=== PATIENT | male | born 1950 | race Caucasian/White ===

== ENCOUNTER → 2017-06-26 | Outpatient (CLI) | payer OTHER ==
[~2017-06-26] MED LIST: ADULT LOW DOSE81 MG PO; ALENDRONATE SOD70 MG PO; ALLOPURINOL 10100 M1; ALLOPURINOL 10100 M1 PO; AMILORIDE HCL-1 EACH PO; ASPIR 8181 MG PO; BENEFIBER1 EAC1 PO; CALCIUM CITRAT1 EAC1 PO; CIPRO500 MG PO; CITRATE OF MAG296 ML PO; CLARITIN10 MG PO; COENZYME Q-1030 MG PO; COZAAR 25 MG TA25 M1 PO; CRESTOR5 MG PO; Cranberry PO; FAMCYCLOVIR 50500 M1 PO; FISH OIL 1,001000 M1 PO; FISH OIL PO; FLOMAX0.4 MG PO; FLONASE 0.05%50 MCG INH; FOSAMAX 70 MG T70 MG PO; GAS RELIEF80 MG PO; GLUCOSAMINE CH1 EAC1 PO; HYDROCHLOROTHIA25 M1 PO; HYDROCODONE-AP1 EAC6 PO; KLOR-CON 1010 MEQ PO; LOPRESSOR50 PO; MIDAMOR 5MG TABL5 M1 PO; MIRALAX17 GM PO; MULTIVITAMINS PO; NEURONTIN 300M300 M2 PO; NORCO 5-325 TA1 EACH PO; PLAVIX 75 MG TA75 M1 PO; PRILOSEC 20 MG20 MG PO; PROBIOTIC1 EAC1 PO; SENNA S TABLET1 EACH PO; SIMVASTATIN20 MG PO; SIMVASTATIN40 MG PO; SIMVASTATIN5 MG PO; TRAMADOL 50 MG50 MG PO; ZADITOR5 M1 FLUSH
== END ==
LOC: M.ULTRA 09:44
DX: N28.1 Cyst of kidney, acquired (principal); N20.0 Calculus of kidney; N28.89 Other specified disorders of kidney and ureter

== ENCOUNTER → 2018-06-04 | Outpatient (CLI) | payer OTHER | LOC: M.RAD 14:16 | DX: J84.10 Pulmonary fibrosis, unspecified (principal); J20.9 Acute bronchitis, unspecified ==

== ENCOUNTER 2018-08-11 09:37 | Inpatient (IN) | payer OTHER ==
[2018-08-11] VITALS (17 sets, daily range): BP systolic 126–182; BP diastolic 65–81
[~2018-08-11] VITALS: Ht 175.3 cm; Wt 83.3 kg
[~2018-08-11 09:37] MED LIST changes: +FISH OIL 1,0001 EAC1 PO; -FISH OIL 1,001000 M1 PO; -ZADITOR5 M1 FLUSH; +ZADITOR5 M1 OPHTHALMIC
[2018-08-11 10:17] LABS: ABSOLUTE EOSINOPHILS 0.1 thou/uL (0.0-0.7); ABSOLUTE LYMPHOCYTES 1.3 thou/uL (0.8-5.3); ABSOLUTE MONOCYTES 0.4 thou/uL (0.0-1.2); BASOPHILS 0.7 %; EOSINOPHILS 1.6 %; HEMATOCRIT 38.2 % (42.0-52.0); HEMOGLOBIN 12.9 gm/dL (14.0-18.0); LYMPHOCYTES 26.3 %; MCH 29.7 pg (26.0-34.0); MCHC 33.7 g/dL (28.0-37.0); MCV 88.1 fL (80.0-100.0); MONOCYTES 9.1 %; MPV 9.3 fl. (7.2-11.1); NUCLEATED RBCS 0 /100WBC; PLATELET COUNT* 122 thou/uL (150-400); POLYS 62.3 %; RBC 4.33 mil/uL (4.50-6.00); RDW-CV 13.3 % (10.5-14.5); WBC 4.9 thou/uL (4.0-11.0)
[2018-08-11 10:29] LABS: CALCIUM 9.5 mg/dL (8.5-10.1); CREATININE 0.9 mg/dL (0.6-1.3); POTASSIUM 3.6 mmol/L (3.5-5.1)
[2018-08-11 10:32] LABS: PROTIME 10.5 Seconds (9.20-11.50)
[2018-08-11 10:49] LABS: ALBUMIN 3.2 g/dL (3.4-5.0); CK-MB MASS 16.6 ng/mL (<0.5-3.6); TOTAL BILIRUBIN 0.6 mg/dL (<0.1-1.0); TOTAL PROTEIN 7.2 g/dL (6.4-8.2)
[2018-08-11 10:51] LABS: TROPONIN-I LEVEL 10.6 ng/mL (<0.06)
--- NOTE | 2018-08-11 13:23 | NUR ---
APPLICATION DEVELOPMENT CONSULTANT FOR PT
--- NOTE | 2018-08-11 16:08 | EKG ---
[place] [address] ELECTROCARDIOGRAM REPORT Name: NATHALIE FREITAS Room: [place] [address] ADM IN [facility].#: [id number] Admission: 08/11/18 Attend Phys: Fuentes Smith MD Discharge: Date of : 46 Report #: [id number] THIS REPORT FOR: //name// [facility] Test Date: 2018-08-11 Test Time: 09:47:33 Pat Name: NATHALIE FREITAS Department: Room: [facility] Gender: M Sales Administration Manager: : 1950 Requested By: Adonay Escobar Order Number: [id number] MD: Ramiro Velasquez Measurements Intervals [place] Rate: 71 P: 39 AL: 170 QRS: -17 QRSD: 102 T: 31 QT: 396 QTc: 431 Interpretive Statements Sinus rhythm Probable left atrial enlargement Borderline left axis deviation Baseline wander in lead(s) V6 Compared to ECG 05/07/2017 09:40:52 Sinus tachycardia no longer present Atrial premature complex(es) no longer present Electronically Signed On 08-11-2018 16:08:18 COORDINATE MEASURING MACHINE PROGRAMMER by Ramiro Velasquez [email or web address] <ELECTRONICALLY SIGNED> By: Ramior Velasquez MD, [facility] 08/11/18 1608 0947 0947 Ramiro Velasquez MD, [facility] /EPI
--- NOTE | 2018-08-11 18:52 | NUR ---
RECEIVED REPORT FROM FREDDY HIGUERA AROUND 1630, ASSUMED PT CARE. PT A&OX4, VSS. RIGHT GROIN CATH SITE CDI, NO HEMATOMA. STUDIO ASSISTANT IN PLACE TRACING SR. ADMISSION HISTORY, ASSESSMENT, AND EDUCATION COMPLETED BY FREDDY HIGUERA - THIS RN AGREES WITH CHARTING AND ASSESSMENT OF FREDDY HIGUERA. PT TOLERATING INSTURUCTED IMMOBILIZATION - ABLE TO BE UP AT 10PM. PT DENIES PAIN OR DISCOMFORT. PT TOLERATING DIET. PT SELF STRAIGHT CATHETERIZED HIMSELF WITH NO ISSUES. PT CURRENTLY RESTING IN BED WATCHING TV. ALL NEEDS MET AT THIS TIME. HOURLY ROUNDING PERFORMED. CALL LIGHT IS WITHIN REACH. FALL PRECAUTIONS IN PLACE.
--- NOTE | 2018-08-11 21:04 | NUR ---
CALL TO UZMA LOVELL REGARDING PATIENT'S CATHETERS, SEE ORDERS.
[2018-08-12] VITALS: BP 139/65
[2018-08-12 04:00] VITALS: BP 146/74
--- NOTE | 2018-08-12 04:56 | NUR ---
PATIENT RESTED IN BED, NO ACUTE CHANGES. PATIENT DID NOT SHOW SIGNS OF DISTRESS. CALL LIGHT WITHIN REACH, HOURLY ROUNDING OBSERVED, BED ALARM ON. PATIENT DID NOT COMPLAIN OF CHEST PAIN.
[2018-08-12 05:28] LABS: ABSOLUTE EOSINOPHILS 0.1 thou/uL (0.0-0.7); ABSOLUTE LYMPHOCYTES 1.3 thou/uL (0.8-5.3); ABSOLUTE MONOCYTES 0.5 thou/uL (0.0-1.2); ABSOLUTE NEUTROPHILS 3.8 thou/uL (1.6-8.1); BASOPHILS 0.4 %; EOSINOPHILS 1.7 %; HEMATOCRIT 36.2 % (42.0-52.0); HEMOGLOBIN 12.4 gm/dL (14.0-18.0); MCH 30.1 pg (26.0-34.0); MCHC 34.4 g/dL (28.0-37.0); MCV 87.5 fL (80.0-100.0); MONOCYTES 9.3 %; MPV 9.4 fl. (7.2-11.1); NUCLEATED RBCS 0 /100WBC; PLATELET COUNT* 111 thou/uL (150-400); POLYS 66.6 %; RBC 4.13 mil/uL (4.50-6.00); RDW-CV 13.7 % (10.5-14.5); WBC 5.7 thou/uL (4.0-11.0)
[2018-08-12 05:50] LABS: ALKALINE PHOSPHATASE 61 U/L (46-116); ANION GAP 6 mmol/L (7-16); BUN 12 mg/dL (7-18); CALCIUM 9.3 mg/dL (8.5-10.1); CHLORIDE 105 mmol/L (98-107); CO2 28 mmol/L (21-32); CREATININE 0.9 mg/dL (0.6-1.3); GLUCOSE 98 mg/dL (70-99); POTASSIUM 3.2 mmol/L (3.5-5.1); SGOT 38 U/L (15-37); SGPT 20 U/L (30-65); SODIUM 139 mmol/L (136-145); TOTAL BILIRUBIN 0.7 mg/dL (<0.1-1.0); TOTAL PROTEIN 6.7 g/dL (6.4-8.2)
[2018-08-12 05:53] LABS: SERUM ASSESSMENT CLEAR; TROPONIN-I LEVEL 3.92 ng/mL (<0.06)
[2018-08-12 06:05] LABS: CHOLESTEROL 151 mg/dL (<200); HDL CHOLESTEROL 56 mg/dL (>40); LDL CHOLESTEROL 77 mg/dL (<100); TC:HDL 2.7 Ratio (Not establshd); TRIGLYCERIDE 92 mg/dL (<150); VLDL 18 mg/dL (<40)
[2018-08-12 07:30] VITALS: BP 135/84
[2018-08-12 09:44] VITALS: BP 135/84
[2018-08-12] MEDS ORDERED: EFFIENT10 MG PO (11:12)
[2018-08-12] MEDS ORDERED: NITROGLYCERIN0.4 MG SUBLING (11:13)
--- NOTE | 2018-08-12 12:18 | NUR ---
RECEIVED DISCHARGE ORDERS PER DR MAE AND DR FITZPATRICK. IV DISCONTINUED. HONEY PROCESSOR REMOVED AND RETURNED TO NURSE'S DESK. CARDIAC REHAB WAS IN TO SEE THE PATIENT PRIOR TO DISCHARGE AND WALKED THE PATIENT. CARDIAC REHAB BEING SETUP POST DISCHARGE. NEW SCRIPT GIVEN FOR EFFIENT AND NEW SCRIPT FOR NITRO CALLED INTO PATIENTS PHARMACY. ALL HIS BELONGINGS PACKED AND LEAVING WITH THE PATIENT. LEAVING VIA AMBULATORY PER HIS REQUEST ACCOMPANIED BY NURSING STAFF AND THE PATIENTS FOR TRANSPORT. NO QUESTIONS OR CONCERNS.
[2018-08-12 12:24] VITALS: BP 135/84
--- NOTE | 2018-08-12 18:21 | EKG ---
[place] [address] ELECTROCARDIOGRAM REPORT Name: NATHALIE FREITAS Room: [address] IN R#: [id number] Admission: 08/11/18 Attend Phys: Fuentes Smith MD Discharge: 08/12/18 Date of : 46 Report #: [id number] THIS REPORT FOR: //name// [facility] Test Date: 2018-08-11 Test Time: 16:40:47 Pat Name: NATHALIE FREITAS Department: Room: [facility] Gender: M Pig Sticker: : 1950 Requested By: Ramiro Velasquez Order Number: [id number] Erwin MD: Ramiro Velasquez Measurements Intervals [place] Rate: 89 P: 55 [place]: 174 QRS: -20 QRSD: 96 T: -31 QT: 385 QTc: 469 Interpretive Statements Sinus rhythm Borderline left axis deviation Borderline T abnormalities, inferior leads Compared to ECG 08/11/2018 09:47:33 T-wave abnormality now present Electronically Signed On 08-12-2018 18:21:09 REGIONAL AIRLINE PILOT by Ramiro Velasquez [email or web address] <ELECTRONICALLY SIGNED> By: Ramiro Velasquez MD, FACC 08/12/18 1821 1640 1640 Ramiro Velasquez MD, FAC /EPI
--- NOTE | 2018-08-12 18:27 | EKG ---
[place] [address] ELECTROCARDIOGRAM REPORT Name: NATHALIE FREITAS Room: [address] IN R#: [id number] Admission: 08/11/18 Attend Phys: Fuentes Smith MD Discharge: 08/12/18 Date of : 46 Report #: [id number] THIS REPORT FOR: //name// [facility] Test Date: 2018-08-12 Test Time: 04:37:45 Pat Name: NATHALIE FREITAS Department: Room: [facility] Gender: M Trouble Lineman: : 1950 Requested By: Ramiro Velasquez Order Number: [id number] [place] MD: Ramiro Velasquez Measurements Intervals [place] Rate: 79 P: 33 [place]: 174 QRS: -19 QRSD: 100 T: 9 QT: 425 QTc: 488 Interpretive Statements Sinus rhythm Probable left atrial enlargement Borderline left axis deviation Borderline prolonged QT interval Compared to ECG 08/11/2018 09:47:33 No significant changes Electronically Signed On 08-12-2018 18:26:47 ENGRAVER by Ramiro Velasquez [email or web address] <ELECTRONICALLY SIGNED> By: Ramiro Velasquez MD, [facility] 08/12/18 1826 0437 0437 Ramiro Velasquez MD, [facility] /EPI
--- NOTE | 2018-08-12 18:33 | CON ---
[address] [address] CONSULTATION Name: NATHALIE FREITAS Room: [address] .R.#: [id number] Admission: 08/11/18 Attend Phys: Fuentes Smith MD Discharge: 08/12/18 Date of : 46 Report #: [id number] THIS REPORT FOR: //name// CC: Fuentes Hernandez INDICATION: Non-ST elevation myocardial infarction. HISTORY OF PRESENT ILLNESS: The patient is a very pleasant 68-year-old gentleman who is well known to myself. He presented to the Emergency Room stating he had a prolonged episode of chest discomfort last evening. The patient took 5 baby aspirin and the pain resolved within half an hour to an hour. He presented to the Emergency Room as instructed. He is no longer having chest pain. EKG shows sinus rhythm without acute ST or T-wave abnormality. His initial troponin was 10. Cardiac risk factors include hypertension and dyslipidemia. PAST MEDICAL HISTORY: 1. Non-ST elevation myocardial infarction in 2014 at which time catheterization revealed no hemodynamically significant stenoses and an area of possible intimal disruption in the mid left anterior descending coronary artery. No intervention was undertaken at that time. 2. Diverticular disease with bleeding in the past. 3. Gastroesophageal reflux. 4. Coronary artery disease. 5. Arthritis. 6. BPH with previous TURP. 7. Gout. 8. Hypertension. 9. Hyperlipidemia. 10. Nephrolithiasis. 11. Osteoporosis. 12. Compression fractures of the spine. ALLERGIES: None documented. HOME MEDICATIONS: Alendronate 70 mg p.o. weekly, allopurinol 100 mg daily, aspirin 81 mg daily, calcium citrate with vitamin D tablet 1 b.i.d., Flonase nasal spray daily, hydrochlorothiazide 25 mg daily, Zaditor eyedrops 1 drop b.i.d., probiotic capsules 1 daily, losartan 25 mg daily, multivitamin 1 tablet daily, fish oil 1000 mg b.i.d., omeprazole 40 mg at dinner, potassium chloride 10 mEq daily, Crestor 20 mg daily, simethicone 80 mg b.i.d., Coenzyme Q10 30 mg daily, Benefiber 1 packet daily, cranberry extract b.i.d. SOCIAL HISTORY: The patient does [place] [address] CONSULTATION Name: NATHALIE FREITAS Room: [address]#: [id number] Admission: 08/11/18 Attend Phys: Fuentes Smith MD Discharge: 08/12/18 Date of : 46 Report #: [id number] FAMILY HISTORY: Noncontributory. REVIEW OF SYSTEMS: A 14-point review of systems as per HPI, otherwise unremarkable. PHYSICAL EXAMINATION: VITAL SIGNS: Stable. Blood pressure 145/59, pulse 84 and regular. GENERAL: This is a pleasant gentleman who is in no distress. Mood and affect appropriate. HEENT: The patient is wearing glasses. Extraocular muscles intact. Mucous membranes are moist. NECK: Examination of the neck shows no jugular venous distention. I do not appreciate carotid bruit. CHEST: Reveals clear lung vitale. CARDIAC: Reveals regular rhythm, normal S1 and S2. I do not appreciate gallop or murmur. ABDOMEN: Reveals normal bowel sounds. The abdomen is soft, nontender. EXTREMITIES: Shows no edema. Peripheral pulses are 2+ and palpable. SKIN: Warm and dry. IMPRESSION AND RECOMMENDATIONS: 1. Non-ST elevation myocardial infarction with significantly elevated troponin. We will proceed with invasive evaluation. Further intervention will be pending results of that study. The patient has received aspirin and heparin in the Emergency Room. He is presently pain-free. 2. Hypertension. Continue current antihypertensive regimen outlined above. We will make adjustments as needed. 3. Hyperlipidemia. Continue rosuvastatin 20 mg daily. <ELECTRONICALLY SIGNED> By: Alfa Newsome MD, FACC 08/12/18 1833 1709 [id number] Newsome MD, FACC /nt
--- NOTE | 2018-08-14 11:20 | CARD ---
[address] [address] CARDIAC CATH REPORT Name: NATHALIE FREITAS Room: [address]#: [id number] Admission: 08/11/18 Attend Phys: Fuentes Smith MD Discharge: 08/12/18 Date of : 46 Report #: [id number] THIS REPORT FOR: //name// APPROVED REPORT Study performed: 08/11/2018 12:57:12 Patient Details Patient Status: ED Room #: The patient is a 68 year-old male Event Personnel Ramiro Velasquez Electric Plater, Elena Cota RN Screening Technician, Mayte Arteaga RTR Monitor, Eric Quezada Scrub Procedures Performed CURLY Place w/wo Plasty Single LAD; left heart catheterization left ventriculography and selective coronary arteriography Indication Non-STEMI Risk Factors Hypercholesterolemia Admission/Lab Medications/Medications given during procedure Aspirin, Platelet Aff. Inhib., Angiomax bolus and infusion Procedure Narrative The patient was brought electively to the Cardiac Catheterization Laboratory and was prepped and draped in a sterile manner. The right femoral was infiltrated with 2% Lidocaine subcutaneous anesthesia. A 7Fr x 11cm Naya sheath was inserted into the right femoral artery. Coronary angiography was performed using coronary diagnostic catheters. The right coronary system was accessed and visualized with a Diagnostic JR 4 catheter. The left coronary system was accessed and visualized with a Diagnostic JL4 catheter. The left ventricle was accessed and visualized with a Diagnostic Pigtail catheter. Left ventricular/Aortic Valve gradient assessed via catheter pullback. Left ventriculogram was performed in DUQUE projection. Pre-demployment femoral angiogram was performed . Closure device was deployed with a Fr 8Fr Angioseal. The patient tolerated the procedure well and there were no complications associated with [place] [address] CARDIAC CATH REPORT Name: NATHALIE FREITAS Room: [address]#: [id number] Admission: 08/11/18 Attend Phys: Fuentes Smith MD Discharge: 08/12/18 Date of : 46 Report #: [id number]. Intraoperative Conscious Sedation Sedation start time: 13:40 Case end Time: 15:00 Fentanyl 100 mcg Versed 4 mg Fluoro Time: 21.6 minutes Dose: DAP [id number] cGycm2 2137 mGy Contrast Type and Amount: Visipaque 300 ml Coronary Angiography The patient's coronary anatomy is right dominant. Diagnostic Cath Left Main 0% narrowing LAD Focal 80% mid LAD stenosis Circumflex 0% narrowing Right Coronary 30% proximal with 40% distal narrowing Left Ventriculography The left ventricle is normal in size with normal contractility. The left ventricular ejection fraction is estimated to be 60%. Left ventricular wall motion abnormalities are not present. There is no mitral insufficiency. Hemodynamics The aortic pressure is 147/62 mmHg with a mean of 101 mmHg. The left ventricular pressure is 155/0 mmHg with a mean of mmHg. The left ventricular end diastolic pressure is 3 mmHg. There was no gradient across the aortic valve upon pullback. PCI Technique Lesion Anticoagulation was achieved with Angiomax. Patient was preloaded with Angiomax IV 11 ml. Percutaneous coronary intervention was performed on the mid left anterior descending artery segment. The lesion stenosis prior to intervention was 80% with MANDEEP 3 flow. A 6FR LAUNCHER EBU 3.5 Guide Catheter was used to engage the ostium. A IG: BMW 190cm Interventional Guidewire was used to cross the lesion. BALLOON DILATION A Balloon catheter Trek RX 2.75 X 8 was inserted and inflated up to 12.00atm for 17seconds. Additional Inflation: 14.00atm for 11[place]. [place] [address] CARDIAC CATH REPORT Name: NATHALIE FREITAS Room: [address]#: [id number] Admission: 08/11/18 Attend Phys: Fuentes Smith MD Discharge: 08/12/18 Date of : 46 Report #: [id number] STENT DEPLOYMENT A drug-eluting stent Reynaldo RX Stent 3.0X12mm was inserted and inflated up to 12.00atm for 16seconds. Additional Inflation: 15.00atm for 13seconds. Final angiography reveals 0 % stenosis with MANDEEP 3 flow. Conclusion #1 significant coronary artery disease characterized by the following: A 80% focal mid LAD stenosis B 30% proximal with 40% distal right coronary narrowing #2 normal left ventricular systolic function, estimate ejection fraction being 60% #3 normal left-sided hemodynamics study #4 successful percutaneous coronary intervention with deployment of a drug-eluting stent at the site of 80% focal mid LAD stenosis with 0% residual narrowing and MANDEEP-3 flow the distal vessel Recommendations Cardiac Risk Reduction Program Aggressive Medical Therapy Medications Administered Aspirin (any) Prasugrel Diagnostic Cath Approved by: Ramiro Velasquez MD Date/Time: 08/14/2018 11:19:07 <ELECTRONICALLY SIGNED> By: Ramiro Velasquez MD, [facility] 08/14/18 1119 1119 1119Ramiro Velasquez MD, FACC /INF
== END 2018-08-12 12:20 | disposition home or self-care (01) | DRG 247 ==
LOC: M.ERS 09:37 → M.2W 11:14 → M.TBA-ER 11:14 → M.2W 16:10
PROVIDERS: Family Medicine; Internal Medicine; ADMIT Internal Medicine
PROC: 4A023N7 Measurement of Cardiac Sampling and Pressure, Left Heart, Percutaneous Approach (ICD-10-PCS; principal; 2018-08-11)
PROC: B215YZZ Fluoroscopy of Left Heart using Other Contrast (ICD-10-PCS; principal; 2018-08-11)
PROC: 027034Z Dilation of Coronary Artery, One Artery with Drug-eluting Intraluminal Device, Percutaneous Approach (ICD-10-PCS; principal; 2018-08-11)
PROC: B41JYZZ Fluoroscopy of Other Lower Arteries using Other Contrast (ICD-10-PCS; principal; 2018-08-11)
PROC: B211YZZ Fluoroscopy of Multiple Coronary Arteries using Other Contrast (ICD-10-PCS; principal; 2018-08-11)
DX: I21.4 Non-ST elevation (NSTEMI) myocardial infarction (principal); I25.10 Atherosclerotic heart disease of native coronary artery without angina pectoris; I10 Essential (primary) hypertension; K21.9 Gastro-esophageal reflux disease without esophagitis; M81.0 Age-related osteoporosis without current pathological fracture; E78.00 Pure hypercholesterolemia, unspecified; M19.90 Unspecified osteoarthritis, unspecified site; N40.0 Benign prostatic hyperplasia without lower urinary tract symptoms; M10.9 Gout, unspecified; E78.5 Hyperlipidemia, unspecified; Z82.49 Family history of ischemic heart disease and other diseases of the circulatory system; Z87.442 Personal history of urinary calculi; Z87.81 Personal history of (healed) traumatic fracture; Z88.8 Allergy status to other drugs, medicaments and biological substances; Z95.5 Presence of coronary angioplasty implant and graft; Z79.899 Other long term (current) drug therapy

== ENCOUNTER 2019-12-15 01:12 | Emergency (ER) | payer MEDICARE ==
[~2019-12-15] VITALS: Ht 175.3 cm; Wt 81.7 kg
[~2019-12-15 01:12] MED LIST changes: +EFFIENT10 MG PO; +NITROGLYCERIN0.4 MG SUBLING
[2019-12-15 03:14] VITALS: BP 132/67
== END 2019-12-15 03:14 | disposition home or self-care (01) ==
LOC: M.ERS 01:12
DX: H92.21 Otorrhagia, right ear (principal); K21.9 Gastro-esophageal reflux disease without esophagitis; E78.00 Pure hypercholesterolemia, unspecified; M19.90 Unspecified osteoarthritis, unspecified site; Z87.442 Personal history of urinary calculi; Z88.8 Allergy status to other drugs, medicaments and biological substances